=== PATIENT | female | born 1970 | race Caucasian/White ===

== ENCOUNTER 2020-08-21 09:39 | Emergency (ER) | payer OTHER ==
[2020-08-21 09:44] VITALS: BP 157/95; PULSE 69; TEMP 97.7; BMI 32.2
[2020-08-21] MEDS ORDERED: IBUPROFEN 600 MG TABLET (FP) PO ONE (09:57)
[2020-08-21] MEDS ORDERED: DIPHTH,PERTUSS(ACELL),TET 0.5 ML DISP.SYRIN IM ONE (09:57)
== END 2020-08-21 11:32 | disposition home or self-care (01) ==
LOC: JERFT 09:39 → JER 09:39 → JERFT 11:32
PROC: 3E0234Z Introduction of Serum, Toxoid and Vaccine into Muscle, Percutaneous Approach (ICD-10-PCS; principal; 2020-08-21)
DX: S60.222A Contusion of left hand, initial encounter (principal); S60.512A Abrasion of left hand, initial encounter
CPT/HCPCS: 73130-TC-LT-FY; 99284-25

== ENCOUNTER → 2020-08-26 | Day surgery (SDC) | payer OTHER | END | disposition home or self-care (01) | LOC: JRADIR 10:39 | PROVIDERS: ATTEND Internal Medicine Endocrinology, Diabetes & Metabolism | PROC: 0G9K3ZX Drainage of Thyroid Gland, Percutaneous Approach, Diagnostic (ICD-10-PCS; principal; 2020-08-26) | DX: E04.1 Nontoxic single thyroid nodule (principal) | CPT/HCPCS: 10005; 76942; 88173; 88305-TC ==

== ENCOUNTER 2023-07-23 14:46 | Emergency (ER) | payer BC ==
[2023-07-23 14:52] VITALS: BP 181/84; PULSE 100; RESP 18; TEMP 98.6; BMI 32.8
[2023-07-23] MEDS ORDERED: AMOX TR/POT CLAV 875MG/125MG TABLETS (FP) PO ONE (15:17)
[2023-07-23] MEDS ORDERED: AMOX TR/POT CLAV 875MG/125MG TABLETS (FP) ONE (15:24)
== END 2023-07-23 15:27 | disposition home or self-care (01) ==
LOC: JER 14:46
DX: J32.9 Chronic sinusitis, unspecified (principal); H92.02 Otalgia, left ear; J34.89 Other specified disorders of nose and nasal sinuses
CPT/HCPCS: 99283-25